=== PATIENT | male | born 1955 | race Caucasian/White ===

== ENCOUNTER → 2021-01-05 | Outpatient (CLI) | payer MEDICARE, BC | LOC: CT 14:47 | DX: I10 Essential (primary) hypertension (principal); R10.13 Epigastric pain | CPT/HCPCS: 36415; 74160; 82565; 84520; Q9967 ==

== ENCOUNTER 2022-02-01 10:16 | Emergency (ER) | payer OTHER, MEDICARE, BC ==
[2022-02-01] MEDS ORDERED: ZANAFLEX4 MG PO (13:00)
== END 2022-02-01 13:07 | disposition home or self-care (01) ==
LOC: ER1 10:16
DX: S93.402A Sprain of unspecified ligament of left ankle, initial encounter (principal); M54.6 Pain in thoracic spine; M54.50 Low back pain, unspecified; R40.2410 Glasgow coma scale score 13-15, unspecified time; I10 Essential (primary) hypertension; Z87.891 Personal history of nicotine dependence; V43.52XA Car driver injured in collision with other type car in traffic accident, initial encounter
CPT/HCPCS: 73110; 73610; 99283

== ENCOUNTER → 2022-02-16 | Outpatient (CLI) | payer OTHER, MEDICARE, BC ==
[~2022-02-16] MED LIST: ZANAFLEX4 MG PO
== END ==
LOC: RAD 16:28
DX: M54.2 Cervicalgia (principal); M54.9 Dorsalgia, unspecified; M25.50 Pain in unspecified joint; M47.812 Spondylosis without myelopathy or radiculopathy, cervical region
CPT/HCPCS: 72040; 72070; 72100; 73030